=== PATIENT | female | born 1955 | race Caucasian/White ===

== ENCOUNTER 2016-04-29 06:44 | Inpatient (IN) | payer OTHER ==
[~2016-04-29] VITALS: Ht 167.6 cm; Wt 94.1 kg
[2016-04-29] MEDS ORDERED: ASPIRIN 81 MG TAB.CHEW PO ONE (07:15)
[2016-04-29 07:22] LABS: BASO # 0.1 x10^3/uL (0.0-0.2); BASO % 1 % (0-3); EOS % 2 % (0-3); HEMOGLOBIN 14.7 g/dL (12.0-15.5); LYMPH # 3.4 x10^3/uL (1.0-4.8); LYMPH % 37 % (24-48); MEAN CORPUSCULAR HEMOGLOBIN 29 pg (25-35); MEAN CORPUSCULAR HGB CONC 34 g/dL (31-37); MEAN CORPUSCULAR VOLUME 86 fL (79-100); MONO % 11 % (0-9); NEUT % 49 % (31-73); PLATELET COUNT 382 x10^3/uL (140-400); RED BLOOD COUNT 5.14 x10^6/uL (3.50-5.40); RED CELL DISTRIBUTION WIDTH 14.4 % (11.5-14.5); WHITE BLOOD COUNT 9.2 x10^3/uL (4.0-11.0)
[2016-04-29 07:23] LABS: CREATININE 0.8 mg/dL (0.6-1.0); GFR 72.9
[2016-04-29 07:29] LABS: ALBUMIN 3.9 g/dL (3.4-5.0); TOTAL BILIRUBIN 0.3 mg/dL (0.2-1.0)
--- NOTE | 2016-04-29 07:54 | RAD ---
Indication chest pain. A single view of the chest was obtained and is compared to an examination 12/19/2008. The heart and pulmonary vessels appear normal. The lungs are clear. There has not been a significant change when compared to the previous exam. IMPRESSION: No acute finding. No significant change
--- NOTE | 2016-04-29 09:21 | PHYS DOC ---
Past Medical History Past Medical History: No Pertinent History Past Surgical History: Alcohol Use: Rarely Drug Use: None Adult General Chief Complaint Chief Complaint: CHEST WALL PAIN HPI HPI 61-year-old female smoker presents with a 2 day history of chest pain. She states initially the pain started near her left shoulder blade [place] now radiating to her anterior chest. She describes the pain as a tightness. She states the pain is an 8 out of 10 in intensity. The pain has been constant for 2 days. She denies any fever chills sweats. She denies any hemoptysis. She denies any exertional dyspnea. [] Review of Systems Review of Systems Constitutional: Denies fever or chills [] Eyes: Denies change in visual acuity, redness, or eye pain [] HENT: Denies nasal congestion or sore throat [] Respiratory: Denies cough or shortness of breath [] Cardiovascular: No additional information not addressed in HPI [] GI: Denies abdominal pain, nausea, vomiting, bloody stools or diarrhea [] : Denies dysuria or hematuria [] Musculoskeletal: Denies back pain or joint pain [] Integument: Denies rash or skin lesions [] Neurologic: Denies headache, focal weakness or sensory changes [] Endocrine: Denies polyuria or polydipsia [] Current Medications Current Medications Current Medications Medications (Trade) Dose Ordered Sig/Zeb Start Time Stop Time Status Last Admin Dose Admin Aspirin (Children'S Aspirin) 324 mg 1X ONCE 04/29/16 07:15 04/29/16 07:16 DC 04/29/16 07:10 324 MG Allergies Allergies Allergies Coded Allergies Type Severity Reaction Last Updated Verified No Known Drug Allergies 04/29/16 No Physical Exam Physical Exam Constitutional: Well developed, well nourished, no acute distress, non-toxic appearance. [] HENT: Normocephalic, atraumatic, bilateral external ears normal, oropharynx moist, no oral exudates, nose normal. [] Eyes: PERRLA, EOMI, conjunctiva normal, no discharge. [] Neck: Normal range of motion, no tenderness, supple, no stridor. [] Cardiovascular:Heart rate regular rhythm, no murmur [] Lungs & Thorax: Bilateral breath sounds clear to auscultation [] Abdomen: Bowel sounds normal, soft, no tenderness, no masses, no pulsatile masses. [] Skin: Warm, dry, no erythema, no rash. [] Back: No tenderness, no CVA tenderness. [] Extremities: No tenderness, no cyanosis, no clubbing, ROM intact, no edema. [] Neurologic: Alert and oriented X 3, normal motor function, normal sensory function, no focal deficits noted. [] Psychologic: Affect normal, judgement normal, mood normal. [] Current Patient Data Vital Signs Vital Signs Date Time Temp Pulse Resp B/P Pulse Ox O2 Delivery O2 Flow Rate FiO2 04/29/16 07:11 75 20 162/74 97 04/29/16 06:50 98.4 Room Air 98.4 Lab Values Laboratory Tests Test 04/29/16 06:10 White Blood Count 9.2x10^3/uL (4.0-11.0) Red Blood Count 5.14x10^6/uL (3.50-5.40) Hemoglobin 14.7g/dL (12.0-15.5) Hematocrit 44.0% (36.0-47.0) Mean Corpuscular Volume 86fL (79-100) Mean Corpuscular Hemoglobin 29pg (25-35) Mean Corpuscular Hemoglobin Concent 34g/dL (31-37) Red Cell Distribution Width 14.4% (11.5-14.5) Platelet Count 382x10^3/uL (140-400) Neutrophils (%) (Auto) 49% (31-73) Lymphocytes (%) (Auto) 37% (24-48) Monocytes (%) (Auto) 11% (0-9) H Eosinophils (%) (Auto) 2% (0-3) Basophils (%) (Auto) 1% (0-3) Neutrophils # (Auto) 4.5x10^3uL (1.8-7.7) Lymphocytes # (Auto) 3.4x10^3/uL (1.0-4.8) Monocytes # (Auto) 1.0x10^3/uL (0.0-1.1) Eosinophils # (Auto) 0.2x10^3/uL (0.0-0.7) Basophils # (Auto) 0.1x10^3/uL (0.0-0.2) Sodium Level 141mmol/L (136-145) Potassium Level 4.0mmol/L (3.5-5.1) Chloride Level 102mmol/L (98-107) Carbon Dioxide Level 29mmol/L (21-32) Anion Gap 10 (6-14) Blood Urea Nitrogen 13mg/dL (7-20) Creatinine 0.8mg/dL (0.6-1.0) Estimated GFR (Cockcroft-Gault) 72.9 BUN/Creatinine Ratio 16 (6-20) Glucose Level 119mg/dL (70-99) H Calcium Level 10.0mg/dL (8.5-10.1) Total Bilirubin 0.3mg/dL (0.2-1.0) Aspartate Amino Transferase (AST) 21U/L (15-37) Alanine Aminotransferase (ALT) 40U/L (14-59) Alkaline Phosphatase 83U/L (46-116) Troponin I Quantitative < 0.017ng/mL (0.000-0.055) OC-Dwq-M-Type Natriuretic Peptide 47pg/mL (0-124) Total Protein 8.0g/dL (6.4-8.2) Albumin 3.9g/dL (3.4-5.0) Albumin/Globulin Ratio 1.0 (1.0-1.7) Laboratory Tests 04/29/16 06:10 Laboratory Tests 04/29/16 06:10 EKG EKG [EKG: Normal sinus rhythm rate of [address]-T changes] Radiology/Procedures Radiology/Procedures [] Impressions: PROCEDURE: CHEST AP ONLY Indication chest pain. A single view of the chest was obtained and is compared to an examination 12/19/2008. The heart and pulmonary vessels appear normal. The lungs are clear. There has not been a significant change when compared to the previous exam. IMPRESSION: No acute finding. No significant change Course & Med Decision Making Course & Med Decision Making Pertinent Labs and Imaging studies reviewed. (See chart for details) [ED course: Evaluation reveals 61-year-old female with chest discomfort that is concerning for potential coronary origin. Her initial troponin chest x-ray and EKG were unremarkable. I still think it's in the patient's best interest to remain in the hospital or further evaluation and definitive testing. I spoke with Dr. Luisa Frazier who agreed and will accept her for admission. Patient's primary care physician requests a consult by Dr. Toño Cisse.] Dragon Disclaimer Dragon Disclaimer This electronic medical record was generated, in whole or in part, using a voice recognition dictation system. Departure Departure Impression: Primary Impression: Chest pain Disposition: ADMITTED INPATIENT Admitting Physician: Luisa Frazier Condition: STABLE Referrals: LUISA FRAZIER MD (PCP) Problem Qualifiers Primary Impression: Chest pain Chest pain type: unspecified Qualified Code: R07.9 - Chest pain, unspecified FABBY ZUNIGA DO Apr 29, 2016 09:21
[2016-04-29] MEDS ORDERED: ACETAMINOPHEN 325 MG TABLET. PO PRN (09:30)
[2016-04-29] MEDS ORDERED: ONDANSETRON PF 4 MG/2 ML VIAL. IV PRN (09:30)
[2016-04-29 11:00] VITALS: BP 143/92
--- NOTE | 2016-04-29 11:38 | EKG ---
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
[2016-04-29] MEDS: MORPHINE SULFATE 2 MG/ML DISP.SYRIN. IV PRN ×3 (13:25→23:54)
[2016-04-29 15:00] VITALS: BP 138/75
--- NOTE | 2016-04-29 15:40 | PDOC2 ---
CONSULT Date of Consult Date of Consult DATE: 04/29/16 TIME: 15:36 Reason for Consult Reason for Consult: Chest pain Referring Physician Referring Physician: Dr. Frazier Identification/Chief Complaint Chief Complaint Chest pain History of Present Illness Reason for Visit: As patient is a 61-year-old lady that has no prior history of heart disease. She is a smoker. For about 2 days the patient has been experiencing some pain but she states it started on her back and then comes around to the front anteriorly on the left side of the chest it had been constant for almost 2 days. The pain was relieved after pain medication was given. The patient's EKG did not show any acute ST abnormality and the enzymes have been negative. She was not in acute distress at the time that I examined her. Past Medical History Pulmonary: COPD Current Problem List Problem List Problems Medical Problems: (1) Chest pain Status: Acute Current Medications Current Medications Current Medications Aspirin (Children'S Aspirin) 324 mg 1X ONCE PO Last administered on 04/29/16 07:10; Start 04/29/16 at 07:15; Stop 04/29/16 at 07:16; Status DC Ondansetron HCl (Zofran) 4 mg PRN Q8HRS PRN IV NAUSEA/VOMITING; Start 04/29/16 at 09:30; Stop 04/30/16 at 09:29 Morphine Sulfate 2 mg PRN Q2HR PRN IV PAIN Last administered on 04/29/16 13:25 ; Start 04/29/16 at 09:30; Stop 04/30/16 at 09:29 Acetaminophen (Tylenol) 650 mg PRN Q4HRS PRN PO FEVER; Start 04/29/16 at 09:30 ; Stop 04/30/16 at 09:29 Allergies Allergies: Coded Allergies: No Known Drug Allergies (Unverified , 04/29/16) Physical Exam General: Alert, Oriented X3, Cooperative HEENT: Atraumatic, PERRLA Lungs: Clear to auscultation Heart: Regular rate, Normal S1, Normal S2, No murmurs Abdomen: Normal bowel sounds, Soft Extremities: No edema Psych/Mental Status: Mental status NL Vitals VITALS Vital Signs Date Time Temp Pulse Resp B/P Pulse Ox O2 Delivery O2 Flow Rate FiO2 04/29/16 15:00 97.1 68 20 138/75 97 Room Air 97.1 Labs Labs Laboratory Tests Test 04/29/16 06:10 White Blood Count 9.2x10^3/uL (4.0-11.0) Red Blood Count 5.14x10^6/uL (3.50-5.40) Hemoglobin 14.7g/dL (12.0-15.5) Hematocrit 44.0% (36.0-47.0) Mean Corpuscular Volume 86fL (79-100) Mean Corpuscular Hemoglobin 29pg (25-35) Mean Corpuscular Hemoglobin Concent 34g/dL (31-37) Red Cell Distribution Width 14.4% (11.5-14.5) Platelet Count 382x10^3/uL (140-400) Neutrophils (%) (Auto) 49% (31-73) Lymphocytes (%) (Auto) 37% (24-48) Monocytes (%) (Auto) 11% (0-9) Eosinophils (%) (Auto) 2% (0-3) Basophils (%) (Auto) 1% (0-3) Neutrophils # (Auto) 4.5x10^3uL (1.8-7.7) Lymphocytes # (Auto) 3.4x10^3/uL (1.0-4.8) Monocytes # (Auto) 1.0x10^3/uL (0.0-1.1) Eosinophils # (Auto) 0.2x10^3/uL (0.0-0.7) Basophils # (Auto) 0.1x10^3/uL (0.0-0.2) Sodium Level 141mmol/L (136-145) Potassium Level 4.0mmol/L (3.5-5.1) Chloride Level 102mmol/L (98-107) Carbon Dioxide Level 29mmol/L (21-32) Anion Gap 10 (6-14) Blood Urea Nitrogen 13mg/dL (7-20) Creatinine 0.8mg/dL (0.6-1.0) Estimated GFR (Cockcroft-Gault) 72.9 BUN/Creatinine Ratio 16 (6-20) Glucose Level 119mg/dL (70-99) Calcium Level 10.0mg/dL (8.5-10.1) Total Bilirubin 0.3mg/dL (0.2-1.0) Aspartate Amino Transf (AST/SGOT) 21U/L (15-37) Alanine Aminotransferase (ALT/SGPT) 40U/L (14-59) Alkaline Phosphatase 83U/L (46-116) Troponin I Quantitative < 0.017ng/mL (0.000-0.055) MU-Fiw-F-Type Natriuretic Peptide 47pg/mL (0-124) Total Protein 8.0g/dL (6.4-8.2) Albumin 3.9g/dL (3.4-5.0) Albumin/Globulin Ratio 1.0 (1.0-1.7) Laboratory Tests Test 04/29/16 06:10 White Blood Count 9.2x10^3/uL (4.0-11.0) Red Blood Count 5.14x10^6/uL (3.50-5.40) Hemoglobin 14.7g/dL (12.0-15.5) Hematocrit 44.0% (36.0-47.0) Mean Corpuscular Volume 86fL (79-100) Mean Corpuscular Hemoglobin 29pg (25-35) Mean Corpuscular Hemoglobin Concent 34g/dL (31-37) Red Cell Distribution Width 14.4% (11.5-14.5) Platelet Count 382x10^3/uL (140-400) Neutrophils (%) (Auto) 49% (31-73) Lymphocytes (%) (Auto) 37% (24-48) Monocytes (%) (Auto) 11% (0-9) Eosinophils (%) (Auto) 2% (0-3) Basophils (%) (Auto) 1% (0-3) Neutrophils # (Auto) 4.5x10^3uL (1.8-7.7) Lymphocytes # (Auto) 3.4x10^3/uL (1.0-4.8) Monocytes # (Auto) 1.0x10^3/uL (0.0-1.1) Eosinophils # (Auto) 0.2x10^3/uL (0.0-0.7) Basophils # (Auto) 0.1x10^3/uL (0.0-0.2) Sodium Level 141mmol/L (136-145) Potassium Level 4.0mmol/L (3.5-5.1) Chloride Level 102mmol/L (98-107) Carbon Dioxide Level 29mmol/L (21-32) Anion Gap 10 (6-14) Blood Urea Nitrogen 13mg/dL (7-20) Creatinine 0.8mg/dL (0.6-1.0) Estimated GFR (Cockcroft-Gault) 72.9 BUN/Creatinine Ratio 16 (6-20) Glucose Level 119mg/dL (70-99) Calcium Level 10.0mg/dL (8.5-10.1) Total Bilirubin 0.3mg/dL (0.2-1.0) Aspartate Amino Transf (AST/SGOT) 21U/L (15-37) Alanine Aminotransferase (ALT/SGPT) 40U/L (14-59) Alkaline Phosphatase 83U/L (46-116) Troponin I Quantitative < 0.017ng/mL (0.000-0.055) DW-Etz-A-Type Natriuretic Peptide 47pg/mL (0-124) Total Protein 8.0g/dL (6.4-8.2) Albumin 3.9g/dL (3.4-5.0) Albumin/Globulin Ratio 1.0 (1.0-1.7) Assessment/Plan Assessment/Plan This patient comes in with an atypical chest pains and so far she has been ruled out. Since she is a smoker I would like to get a stress MPI in the morning. Thank you very much for asking me to participate in the care of this patient ZARI ORDONEZ MD Apr 29, 2016 15:40
[2016-04-29 19:00] VITALS: BP 116/74
[2016-04-29 22:49] VITALS: BP 125/80
[2016-04-30 03:24] VITALS: BP 136/84
[2016-04-30 07:33] VITALS: BP 141/80
--- NOTE | 2016-04-30 08:23 | PDOC ---
Provider Note Provider Note suspect cervical sourc of pain, mpi [id number] LUISA GOULD MD Apr 30, 2016 08:23
--- NOTE | 2016-04-30 09:16 | HP ---
ADMIT DATE: CHIEF COMPLAINT: Left upper chest pain. HISTORY OF PRESENT ILLNESS: A 61-year-old white female new patient to me, has no medical history and takes no meds. She began having some aching discomfort in her left upper back and left anterior chest. About 2 days prior to admission, which appeared to be more present at rest or lying down and less present when walking or moving about. There was some pain in left arm as well with a sensation of little bit of tingling at times as well. She recalls no injury, but does a lot of heavy lifting at work. She has had no fever, chills, cough, urinary symptoms, GI symptoms or other complaints. EKGs and serial enzymes have been negative so far and she has an MPI scheduled. PAST MEDICAL HISTORY: Surgically, she has had C-sections. She is on no prescription medications. ALLERGIES: No known drug allergies. No other serious medical problems. 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 FAMILY HISTORY: Strongly positive for hypertension in all of her siblings, otherwise unremarkable. REVIEW OF SYSTEMS: No other complaints. OBJECTIVE: ENT: All within normal limits. NECK: No bruits, masses or nodes. Good range of motion. LUNGS: Clear. CARDIOVASCULAR: Regular rate. No irregular beat, rub, or murmur. BACK: Nontender with no ____. No lesions for herpes zoster. No flank tenderness. EXTREMITIES: Unremarkable with good radial and pedal pulses. No joint or skin lesions. ABDOMEN: Benign. NEUROLOGIC: Nonfocal. ASSESSMENT: Suspect musculoskeletal likely cervical radicular source of pain. She is a smoker and does have risk factors for heart disease ____. PLAN: The MPI for now. LUISA GOULD MD DR: JENNY/latosha JOB#: [id number] / [id number]
[2016-04-30] MEDS ORDERED: ACETAMINOPHEN 325 MG TABLET. PO PRN (11:00)
[2016-04-30] MEDS ORDERED: ONDANSETRON PF 4 MG/2 ML VIAL. IV PRN (11:00)
[2016-04-30] MEDS ORDERED: MORPHINE SULFATE 2 MG/ML DISP.SYRIN. IV PRN (11:00)
[2016-04-30 11:02] VITALS: BP 142/95
--- NOTE | 2016-04-30 12:52 | PDOC ---
PROGRESS NOTES Subjective Subjective Has continued to have a few intermittent episodes of chest discomfort that last only briefly and are less sever than when she presented. No other complaints. Stress MPI today. Objective Objective Vital Signs Date Time Temp Pulse Resp B/P Pulse Ox O2 Delivery O2 Flow Rate FiO2 04/30/16 11:08 20 96 Room Air 04/30/16 11:02 97.6 79 142/95 97.6 Intake and Output 04/30/16 07:00 Intake Total 1320 ml Balance 1320 ml Intake Oral 1320 ml # Voids 4 Physical Exam Abdomen: Normal bowel sounds, Soft Heart: Regular rate, Normal S1, Normal S2, No murmurs Extremities: No clubbing, No cyanosis, No edema General: Alert, Cooperative, No acute distress Lungs: Clear to auscultation Neuro: Other (No gross focal deficits) Assessment Assessment Continued chest pain, MPI was essentially normal with EF > 80%. Chest pain is likely non cardiac in origin as ECG, troponins and MPI have been negative. Problems Medical Problems: (1) Chest pain Status: Acute Plan Plan of Care Patient is stable from a cardiac standpoint for discharge. Thank you for including me in the care of this patient. Comment Review of Relevant I have reviewed the following items sarah (where applicable) has been applied. Labs Laboratory Tests Test 04/29/16 06:10 04/29/16 15:10 04/29/16 21:07 White Blood Count 9.2x10^3/uL (4.0-11.0) Red Blood Count 5.14x10^6/uL (3.50-5.40) Hemoglobin 14.7g/dL (12.0-15.5) Hematocrit 44.0% (36.0-47.0) Mean Corpuscular Volume 86fL (79-100) Mean Corpuscular Hemoglobin 29pg (25-35) Mean Corpuscular Hemoglobin Concent 34g/dL (31-37) Red Cell Distribution Width 14.4% (11.5-14.5) Platelet Count 382x10^3/uL (140-400) Neutrophils (%) (Auto) 49% (31-73) Lymphocytes (%) (Auto) 37% (24-48) Monocytes (%) (Auto) 11% (0-9) Eosinophils (%) (Auto) 2% (0-3) Basophils (%) (Auto) 1% (0-3) Neutrophils # (Auto) 4.5x10^3uL (1.8-7.7) Lymphocytes # (Auto) 3.4x10^3/uL (1.0-4.8) Monocytes # (Auto) 1.0x10^3/uL (0.0-1.1) Eosinophils # (Auto) 0.2x10^3/uL (0.0-0.7) Basophils # (Auto) 0.1x10^3/uL (0.0-0.2) Sodium Level 141mmol/L (136-145) Potassium Level 4.0mmol/L (3.5-5.1) Chloride Level 102mmol/L (98-107) Carbon Dioxide Level 29mmol/L (21-32) Anion Gap 10 (6-14) Blood Urea Nitrogen 13mg/dL (7-20) Creatinine 0.8mg/dL (0.6-1.0) Estimated GFR (Cockcroft-Gault) 72.9 BUN/Creatinine Ratio 16 (6-20) Glucose Level 119mg/dL (70-99) Calcium Level 10.0mg/dL (8.5-10.1) Total Bilirubin 0.3mg/dL (0.2-1.0) Aspartate Amino Transf (AST/SGOT) 21U/L (15-37) Alanine Aminotransferase (ALT/SGPT) 40U/L (14-59) Alkaline Phosphatase 83U/L (46-116) Troponin I Quantitative < 0.017ng/mL (0.000-0.055) < 0.017ng/mL (0.000-0.055) < 0.017ng/mL (0.000-0.055) US-Uol-Z-Type Natriuretic Peptide 47pg/mL (0-124) Total Protein 8.0g/dL (6.4-8.2) Albumin 3.9g/dL (3.4-5.0) Albumin/Globulin Ratio 1.0 (1.0-1.7) Laboratory Tests Test 04/29/16 15:10 04/29/16 21:07 Troponin I Quantitative < 0.017ng/mL (0.000-0.055) < 0.017ng/mL (0.000-0.055) Medications Current Medications Aspirin (Children'S Aspirin) 324 mg 1X ONCE PO Last administered on 04/29/16 07:10; Start 04/29/16 at 07:15; Stop 04/29/16 at 07:16; Status DC Ondansetron HCl (Zofran) 4 mg PRN Q8HRS PRN IV NAUSEA/VOMITING; Start 04/29/16 at 09:30; Stop 04/30/16 at 09:29; Status DC Morphine Sulfate 2 mg PRN Q2HR PRN IV PAIN Last administered on 04/29/16 23:54 ; Start 04/29/16 at 09:30; Stop 04/30/16 at 09:29; Status DC Acetaminophen (Tylenol) 650 mg PRN Q4HRS PRN PO FEVER Last administered on 04/30 05:15; Start 04/29/16 at 09:30; Stop 04/30/16 at 09:29; Status DC Morphine Sulfate 2 mg PRN Q2HR PRN IV PAIN Last administered on 04/30/16 11:08 ; Start 04/30/16 at 11:00 Ondansetron HCl (Zofran) 4 mg PRN Q6HRS PRN IV NAUSEA/VOMITING; Start 04/30/16 at 11:00 Acetaminophen (Tylenol) 650 mg PRN Q4HRS PRN PO MILD PAIN / TEMP; Start at 11:00 Vitals/I & O Vital Sign - Last 24 Hours 04/29/16 04/29/16 04/29/16 04/29/16 15:00 19:00 20:00 22:49 Temp 97.1 98.0 97.6 97.1 98.0 97.6 Pulse 68 75 70 Resp 18 B/P 138/75 116/74 125/80 Pulse Ox 97 100 93 O2 Delivery Room Air Room Air Room Air Room Air 04/29/16 04/30/16 04/30/16 04/30/16 23:54 00:24 03:24 07:33 Temp 97.7 97.7 97.7 97.7 Pulse 69 66 Resp 20 20 18 18 B/P 136/84 141/80 Pulse Ox 97 96 O2 Delivery Room Air Room Air Room Air Room Air 04/30/16 04/30/16 04/30/16 08:00 11:02 11:08 Temp 97.6 97.6 Pulse 79 Resp 18 20 B/P 142/95 Pulse Ox 96 96 O2 Delivery Room Air Room Air Room Air Intake and Output 04/29/16 04/29/16 04/30/16 15:00 23:00 07:00 Intake Total 120 ml 800 ml 400 ml Balance 120 ml 800 ml 400 ml ZARI ORDONEZ MD Apr 30, 2016 12:52
--- NOTE | 2016-04-30 14:07 | RAD ---
APPROVED REPORT Test Type: Exercise Stress Nurse/Tech: Consuelo Iqbal R.N. Test Indications: chest pain Cardiac History: smoker Medications: see ehr Medical History: see ehr Resting ECG: sr Resting Heart Rate: 75 bpm Resting Blood Pressure: 153/86mmHg Pretest Chest Pain: No chest pain Nurse/Tech Notes lungs cta-diminished, norrmal heart tones Consent: The procedure was explained to the patient in lay terms. Informed consent was witnessed. Brigido eout was entered into [employer]. History and Stress Test performed by Consuelo Iqbal R.N. Stress Symptoms No chest pain or symptoms. POST EXERCISE Reason for Termination: Reached target heart rate Target HR: Yes Max HR: 154 bpm 96% of Maximum Predicted HR: 159 bpm Exercise duration: 3:00 min:sec, 1 Stage Exercise capacity: 4.6METs Max Blood Pressure: 163/82mmHg Blood Pressure response to exercise: Normal blood pressure response during stress. Heart Rate response to exercise: normal Chest Pain: No. Arrhythmia: Yes. pacs ST Change: No. Imaging Protocol IMAGE PROTOCOL: Rest Tc-99m/stress Tc-99m 1 day Rest: Stress: Viability: Radiopharm.Tc99m [id number] Sestamibi Dose10.5mCi 35mCi Duration 15min. 10min. Img Date 04/30/2016 04/30/2016 Inj-Img [id number]. 60min. Rest Admin Site:IV - Left AntecubitalAdministrator:Bebe Spring, RT (R)(N) Stress Admin Site: IV - Left AntecubitalAdministrator: SANA Koenig, ARRT (R)(N) STRESS DATA End Diast. Vol.67.0mlAv. Heart Rate86.0bpm End Syst. Vol.9.0mlCO Index BSA0.0L/min Myocardial Imvn569.0gEject. Ytwikoft99.0% Stress Rates Pk. Fill Rate4.34EDV/secLVtime Pk. Fill 190.74msec Pk. Empty Rate6.02ESV/secLVtime Pk. Ynvrq187.40msec 03/13 Pk. Fill1.67EDV/sec Stress Scores Regional WT0.00Summed WT0.00 Regional WM0.00Summed WM0.00 LV Perf. Quant 17 Seg. SSS1.00 17 Seg. SRS1.00 17 Seg. SDS1.00 Stress Defect Extent (% LAD)0.00Rest Defect Extent (% LAD)0.00Rev. Defect Extent (% LAD)0.00 Stress Defect Extent (% LCX) 7.50Rest Defect Extent (% LCX)2.50Rev. Defect Extent (% LCX)7.50 Stress Defect Extent (% RCA)0.00Rest Defect Extent (% RCA)0.00Rev. Defect Extent (% RCA)0.00 Stress Defect Extent (% HOWARD)1.30Rest Defect Extent (% HOWARD)0.40Rev. Defect Extent (% HOWARD)1.30 Conclusion 1. Excercised patient on the Alfredo Protocol for a total of 3 mins 2. .This shows low physical tolerance. 3. Attained a heart rate of 154 bpm which is the maximum predicted heart rate for age 4. No significant perfusiobn defects to suggest myocardial ischemia or scar 5. Normal wall motion and wall thickening with an ejection fraction of 80%. 6. Because she excercised only for 3 mins. this tesy may not be valid. 7. Consider pharmacological stressi if clinical suspicion for CAD is high. 8. .
--- NOTE | 2016-04-30 23:30 | DS ---
DATE OF DISCHARGE: 04/30/2016 HOSPITAL SUMMARY: A 61-year-old white female came in with some left-sided upper back and upper chest pain that sounded noncardiac in nature. EKGs and cardiac enzymes and laboratory studies were normal as was chest x-ray and EKG. Dr. Cisse performed exercise MPI, which was all within normal limits and she was comfortable to be followed as an outpatient at this point. FINAL DIAGNOSIS: Noncardiac chest pain. OPERATIONS, PROCEDURES, COMPLICATIONS: None. CONSULTATIONS: Dr. Cisse. DISPOSITION: Discharged home. No new medications. We will evaluate regarding possible cervical source of pain if it persists and will see on a p.r.n. basis. LUISA GOULD MD DR: JENNY/nts JOB#: [id number] / [id number]
== END 2016-04-30 13:45 | disposition home or self-care (01) | DRG 313 ==
LOC: ER 06:44 → 5 SOUTH 09:23
PROVIDERS: ADMIT Family Medicine; ATTEND Family Medicine
DX: R07.89 Other chest pain (principal); F17.210 Nicotine dependence, cigarettes, uncomplicated; J44.9 Chronic obstructive pulmonary disease, unspecified; Z82.49 Family history of ischemic heart disease and other diseases of the circulatory system; Z79.82 Long term (current) use of aspirin; Z79.899 Other long term (current) drug therapy
CPT/HCPCS: 36415; 71010; 78452; 80053; 83880; 84484; 85027; 93005; 93017; 96374; 96376; A9500; J2270; 99285-25

== ENCOUNTER → 2017-04-22 | Outpatient (CLI) | payer OTHER ==
[2017-04-22 07:43] LABS: ANION GAP 9 (6-14); BLOOD UREA NITROGEN 15 mg/dL (7-20); CALCIUM 9.1 mg/dL (8.5-10.1); CARBON DIOXIDE 28 mmol/L (21-32); CHLORIDE 100 mmol/L (98-107); CHOLESTEROL 178 mg/dL (0-200); CREATININE 0.8 mg/dL (0.6-1.0); GFR 72.7; GLUCOSE 117 mg/dL (70-99); HDLC 32 mg/dL (40-60); LDLC 124 mg/dL (0-100); NON-HDL CHOLESTEROL 146 mg/dL (0-129); SODIUM 137 mmol/L (136-145); TRIGLYCERIDES 111 mg/dL (0-150); VLDLC 22 mg/dL (0-40)
[2017-04-22 07:44] LABS: CHOLESTEROL/HDL RATIO 5.6
== END | disposition home or self-care (01) ==
LOC: LAB 07:08
DX: Z13.1 Encounter for screening for diabetes mellitus (principal); Z13.220 Encounter for screening for lipoid disorders; E78.5 Hyperlipidemia, unspecified
CPT/HCPCS: 36415; 80048; 80061

== ENCOUNTER → 2017-04-24 | Outpatient (CLI) | payer OTHER | END | disposition home or self-care (01) | LOC: MAMMO 12:14 | DX: Z12.31 Encounter for screening mammogram for malignant neoplasm of breast (principal) | CPT/HCPCS: 77063; 77067 ==

== ENCOUNTER → 2017-05-01 | Outpatient (CLI) | payer OTHER | END | disposition home or self-care (01) | LOC: MAMMO 10:36 | DX: R92.1 Mammographic calcification found on diagnostic imaging of breast (principal) | CPT/HCPCS: 77065 ==

== ENCOUNTER → 2017-11-19 | Outpatient (CLI) | payer OTHER ==
--- NOTE | 2017-11-19 13:15 | RAD ---
DATE: 11/19/2017 EXAM: MAMMO RYAN DIAG RT HISTORY: Follow-up microcalcifications COMPARISON: 05/01/2017, 04/24/2017 This study was interpreted with the benefit of Computerized Aided Detection (CAD). Breast Density: SCATTERED The breast parenchyma shows scattered fibroglandular densities. Breast parenchyma level B. FINDINGS: 2-D and 3-D tomosynthesis imaging was performed in CC and MLO projections. No new or enlarging breast densities are seen. There is a grouping of microcalcifications posteromedially in the right breast which is unchanged. These have a relatively benign appearance. No new abnormality is detected. IMPRESSION: Stable right breast microcalcifications. Follow-up bilateral mammography in 6 months is suggested. BI-RADS CATEGORY: 3 PROBABLY BENIGN FINDING(S)-SHORT INTERVAL FOLLOW-UP SUGGESTED RECOMMENDED FOLLOW-UP: 6M 6 MONTH FOLLOW-UP PQRS compliance statement: Patient information was entered into a reminder system with a target due date for the next mammogram. Mammography is a sensitive method for finding small breast cancers, but it does not detect them all and is not a substitute for careful clinical examination. A negative mammogram does not negate a clinically suspicious finding and should not result in delay in biopsying a clinically suspicious abnormality. "Our facility is accredited by the [employer] Mammography Program."
== END | disposition home or self-care (01) ==
LOC: MAMMO 12:22
PROVIDERS: ATTEND Family Medicine
DX: R92.0 Mammographic microcalcification found on diagnostic imaging of breast (principal); E78.5 Hyperlipidemia, unspecified; F17.210 Nicotine dependence, cigarettes, uncomplicated; J44.9 Chronic obstructive pulmonary disease, unspecified; Z82.49 Family history of ischemic heart disease and other diseases of the circulatory system; Z79.82 Long term (current) use of aspirin; Z79.899 Other long term (current) drug therapy
CPT/HCPCS: 77065; G0279; 77061

== ENCOUNTER → 2018-05-26 | Outpatient (CLI) | payer OTHER ==
[2018-05-26 08:14] LABS: ALBUMIN 3.4 g/dL (3.4-5.0); ALBUMIN/GLOBULIN RATIO 0.8 (1.0-1.7); CALCIUM 9.2 mg/dL (8.5-10.1); CREATININE 0.8 mg/dL (0.6-1.0); GFR 72.4; POTASSIUM 4.4 mmol/L (3.5-5.1); TOTAL BILIRUBIN 0.4 mg/dL (0.2-1.0); TOTAL PROTEIN 7.9 g/dL (6.4-8.2)
[2018-05-26 08:21] LABS: CHOLESTEROL/HDL RATIO 3.4
[2018-05-26 23:12] LABS: HEMOGLOBIN A1C 6.2 % (4.8-5.6)
== END | disposition home or self-care (01) ==
LOC: LAB 07:15
PROVIDERS: ATTEND Family Medicine
DX: E78.2 Mixed hyperlipidemia (principal); R73.03 Prediabetes
CPT/HCPCS: 36415; 80053; 80061; 83036

== ENCOUNTER → 2018-06-10 | Outpatient (CLI) | payer OTHER ==
--- NOTE | 2018-06-10 15:14 | RAD ---
DATE: 06/10/2018 EXAM: MAMMO RYAN DIAG BILAT HISTORY: Follow-up microcalcifications COMPARISON: 11/19/2017, 05/01/2017, 04/24/2017 This study was interpreted with the benefit of Computerized Aided Detection (CAD). Breast Density: SCATTERED The breast parenchyma shows scattered fibroglandular densities. Breast parenchyma level B. FINDINGS: 2-D and 3-D tomosynthesis imaging was performed in CC and MLO projections. No new or enlarging breast densities are seen. A grouping of calcifications in the posteromedial aspect of the right breast is unchanged. There are scattered benign type calcifications are noted in both breasts. IMPRESSION: Stable right breast microcalcifications. Further mammographic surveillance consisting of right mammograms in 6 months and bilateral mammography at one year is suggested. BI-RADS CATEGORY: 3 PROBABLY BENIGN FINDING(S)-SHORT INTERVAL FOLLOW-UP SUGGESTED RECOMMENDED FOLLOW-UP: 6M 6 MONTH FOLLOW-UP PQRS compliance statement: Patient information was entered into a reminder system with a target due date for the next mammogram. Mammography is a sensitive method for finding small breast cancers, but it does not detect them all and is not a substitute for careful clinical examination. A negative mammogram does not negate a clinically suspicious finding and should not result in delay in biopsying a clinically suspicious abnormality. "Our facility is accredited by the [employer] Mammography Program."
== END | disposition home or self-care (01) ==
LOC: MAMMO 13:30
PROVIDERS: ATTEND Family Medicine
DX: R92.0 Mammographic microcalcification found on diagnostic imaging of breast (principal)
CPT/HCPCS: 77066; G0279; 77062

== ENCOUNTER → 2018-08-29 | Day surgery (SDC) | payer OTHER ==
[~2018-08-29] MED LIST: ATOR40TA59 PO; HYDROmorphone 2 MG/ML VIAL IV PRN; IV RINGERS,LACTATED 1000ML 1,000 ML IV SCH; LIDOCAINE 2% PF 5 ML VIAL. ONE; MORPHINE SULFATE 2 MG/ML VIAL. IV PRN; ONDANSETRON PF 4 MG/2 ML VIAL. IV PRN; PROCHLORPERAZINE 10 MG/2 ML VIAL. IV PRN; PROPOFOL 40 ML IV ONE; VARE1TAB21 PO; fentaNYL PF VIAL 100 MCG/2 ML VIAL IV PRN
[2018-08-29 08:35] VITALS: BP 138/62
--- NOTE | 2018-08-29 09:08 | CONS ---
DATE OF CONSULTATION: 08/29/2018 REFERRING PHYSICIAN: Oanh Pinedo MD. REASON FOR CONSULTATION: Colorectal screening. HISTORY OF PRESENT ILLNESS: A 63-year-old female with past medical history significant for hyperlipidemia, status post C-sections x2, is seen for screening colon exam. Bowel habits are regular without diarrhea or constipation. There has been no melena and/or hematochezia. Weight and appetite are stable. No family history of colon polyps or colon cancer. She states that has not undergone previous screening. She is otherwise without additional complaints. PAST MEDICAL HISTORY: GERD, arthritis, and hyperlipidemia. ALLERGIES: None. MEDICATIONS: Include atorvastatin and Chantix. FAMILY HISTORY: Significant for diabetes and ovarian cancer with her mother and organic heart disease with her grandmother and colon polyps with her grandfather. REVIEW OF SYSTEMS: HEENT: There is no decrease in visual acuity issues. CARDIAC: No history of hypertension, palpitations, syncope. PULMONARY: No history of tobaccoism. NEUROLOGIC: No stroke or migraine. PSYCHIATRIC: No mood swings, depression, insomnia. HEMATOLOGIC: No bleeding, bruising, or coagulopathy. GASTROINTESTINAL: See history of present illness. MUSCULOSKELETAL: History of osteoarthrosis. ENDOCRINE: There is no history of diabetes. There is history of hyperlipidemia. RENAL: No dysuria, frequency, hematuria. DERMATOLOGIC: No skin rashes or pruritus. PHYSICAL EXAMINATION: GENERAL: A well-nourished, well-developed female who is alert and cooperative, in no acute distress. VITAL SIGNS: Temperature 98, pulse 93, and respirations 18. HEENT: Normocephalic, atraumatic. Pupils and extraocular muscles are not tested. Sclerae anicteric. NECK: Supple. LUNGS: Clear. CARDIOVASCULAR: Reveals an S1, S2 without S3, S4 or appreciable murmur. ABDOMEN: Reveals soft abdomen, normal bowel sounds without appreciable hepatosplenomegaly with incision. EXTREMITIES: Reveals no cyanosis, clubbing, edema. IMPRESSION: Colorectal screening is warranted at this time. Risks and benefits of procedure including risk of hemorrhage and perforation requiring operation have been discussed. The patient is willing to proceed. I would like to thank Dr. Pinedo, for allowing me to consult and participate in this patient's care. MAK RAM MD DR: YARA/latosha JOB#: [id number] / [id number] OANH Esteban MD
--- NOTE | 2018-09-01 15:06 | PATHOLOGY ---
[facility] Accession Number: [id number] . 01 Material submitted: . rectum - RECTAL COLON POLYP BIOPSIES . 01 Clinical history: . Screening colon. . 02 Diagnosis: Colorectal biopsies, rectal polyps: - Hyperplastic polyps. (JPM:mireya; 09/01/2018) QMS/09/01/2018 . 02 Comment: There are no adenomatous changes or evidence of malignancy. (JPM:mireya; 09/01/2018) . 02 Electronically signed: . Dean Bourgeois MD, Pathologist NPI- [id number] . 01 Gross description: . Received in formalin labeled "Maira, Phyllis, rectal colon polyp biopsies" is a 0.6 x 0.3 x 0.2 cm aggregate of brooks-brown mucosa fragments. The specimen is submitted in A1. ([facility]; 08/31/2018) SYC/SYC . 02 Pathologist provided ICD-10: K62.1, Z12.11 . 02 CPT . 774403 Specimen Comment: A courtesy copy of this report has been sent to Specimen Comment: [phone], . Specimen Comment: Report sent to / DR MATT Performed at: 01 [facility] [address], [place], [place] [id number] MD Franco Raman MD Phone: [phone] Performed at: 02 [facility] [address], [place] [id number] MD Dean Bourgeois MD Phone: [phone]
== END ==
LOC: ENDOS 06:58
PROVIDERS: ATTEND Internal Medicine Gastroenterology
DX: Z12.11 Encounter for screening for malignant neoplasm of colon (principal); K62.1 Rectal polyp; K64.0 First degree hemorrhoids; K21.9 Gastro-esophageal reflux disease without esophagitis; I10 Essential (primary) hypertension; E78.5 Hyperlipidemia, unspecified; M19.90 Unspecified osteoarthritis, unspecified site; Z79.899 Other long term (current) drug therapy; Z87.891 Personal history of nicotine dependence; Z98.890 Other specified postprocedural states
CPT/HCPCS: 45380; 88305; J2001; J2704

== ENCOUNTER → 2018-12-18 | Outpatient (CLI) | payer OTHER ==
[2018-12-01 11:00] VITALS: BP 141/74
[~2018-12-18] MED LIST changes: -HYDROmorphone 2 MG/ML VIAL IV PRN; -IV RINGERS,LACTATED 1000ML 1,000 ML IV SCH; -LIDOCAINE 2% PF 5 ML VIAL. ONE; -MORPHINE SULFATE 2 MG/ML VIAL. IV PRN; -ONDANSETRON PF 4 MG/2 ML VIAL. IV PRN; -PROCHLORPERAZINE 10 MG/2 ML VIAL. IV PRN; -PROPOFOL 40 ML IV ONE; -fentaNYL PF VIAL 100 MCG/2 ML VIAL IV PRN
--- NOTE | 2018-12-18 13:51 | RAD ---
DATE: 12/18/2018 8:51 AM EXAM: MAMMO RYAN DIAG RT HISTORY: further evaluation of a finding noted on her most recent screening mammographic examination. On that examination indeterminate microcalcifications were reported within the right COMPARISON: 06/10/2018 Right CC and MLO views of the breasts were performed. Right breast tomosynthesis was performed in CC and MLO projections. This study was interpreted with the benefit of Computerized Aided Detection (CAD). FINDINGS: Breast Density: SCATTERED The breast parenchyma shows scattered fibroglandular densities. Breast parenchyma level B Benign calcifications are present. The parenchymal pattern appears stable. The right breast microcalcifications are stable in appearance. No suspicious masses, microcalcifications or architectural distortion is present to suggest malignancy in the left breast. The visualized axillae are unremarkable. IMPRESSION: Stable appearance of the right breast macrocalcifications. BI-RADS CATEGORY: 3 PROBABLY BENIGN FINDING(S)-SHORT INTERVAL FOLLOW-UP SUGGESTED RECOMMENDED FOLLOW-UP: 6M 6 MONTH FOLLOW-UP 6 month follow-up of the right breast microcalcifications, at which point the patient will be due for contralateral screening. PQRS compliance statement: Patient information was entered into a reminder system with a target due date for the next mammogram. Mammography is a sensitive method for finding small breast cancers, but it does not detect them all and is not a substitute for careful clinical examination. A negative mammogram does not negate a clinically suspicious finding and should not result in delay in biopsying a clinically suspicious abnormality. "Our facility is accredited by the [employer] Mammography Program."
== END | disposition home or self-care (01) ==
LOC: MAMMO 08:50
PROVIDERS: ATTEND Family Medicine
DX: R92.0 Mammographic microcalcification found on diagnostic imaging of breast (principal)
CPT/HCPCS: 77065; G0279; 77061

== ENCOUNTER → 2019-05-15 | Outpatient (CLI) | payer OTHER ==
[2018-12-01 11:00] VITALS: BP 141/74
== END ==
LOC: LAB 13:46
PROVIDERS: ATTEND Family Medicine
DX: I77.6 Arteritis, unspecified (principal)
CPT/HCPCS: 88305; 88312

== ENCOUNTER → 2019-09-30 | Outpatient (CLI) | payer OTHER ==
[2018-12-01 11:00] VITALS: BP 141/74
== END | disposition home or self-care (01) ==
LOC: LAB 13:46
PROVIDERS: ATTEND Internal Medicine Pulmonary Disease
DX: Z20.828 Contact with and (suspected) exposure to other viral communicable diseases (principal)
CPT/HCPCS: U0003-CS

== ENCOUNTER → 2019-10-08 | Outpatient (CLI) | payer OTHER ==
[2018-12-01 11:00] VITALS: BP 141/74
--- NOTE | 2019-10-08 15:57 | RAD ---
DATE: 10/08/2019 2:48 PM EXAM: MAMMO RYAN TRISTIAN LOAIZA HISTORY: Patient is due for bilateral screening mammogram Presents for six-month follow-up probably benign right breast lower inner calcifications. COMPARISON: 04/24/2017, 05/01/2017, 11/19/2017, 06/10/2018, 12/18/2018 mammograms (most recent exam was of the right breast only). Bilateral CC and MLO views of the breasts were performed. Bilateral breast tomosynthesis was performed in CC and MLO projections. Magnification right cc view also obtained. This study was interpreted with the benefit of Computerized Aided Detection (CAD). FINDINGS: Breast Density: FATTY The Breast Parenchyma is primarily fatty replaced. Breast parenchyma level density A. Loose cluster of punctate calcifications in the medial inferior right breast at the approximate 4:00 position 12 cm from the nipple shows no significant change in over 2 years and is compatible with a benign etiology. No developing mass, architectural distortion or developing calcifications appreciated. Left mammogram is negative. IMPRESSION: Benign right breast calcifications. No evidence of malignancy in either breast. BI-RADS CATEGORY: 2 BENIGN FINDING(S) RECOMMENDED FOLLOW-UP: 12M 12 MONTH FOLLOW-UP Annual screening mammography is recommended, unless clinically indicated sooner based on symptoms or change in physical exam. Discussed with patient. PQRS compliance statement: Patient information was entered into a reminder system with a target due date for the next mammogram. Mammography is a sensitive method for finding small breast cancers, but it does not detect them all and is not a substitute for careful clinical examination. A negative mammogram does not negate a clinically suspicious finding and should not result in delay in biopsying a clinically suspicious abnormality. "Our facility is accredited by the [employer] Mammography Program."
== END | disposition home or self-care (01) ==
LOC: MAMMO 14:16
PROVIDERS: ATTEND Family Medicine
DX: R92.1 Mammographic calcification found on diagnostic imaging of breast (principal)
CPT/HCPCS: 77066; G0279; 77062

== ENCOUNTER → 2020-02-09 | Outpatient (CLI) | payer OTHER ==
[2018-12-01 11:00] VITALS: BP 141/74
== END ==
LOC: LAB 15:49
PROVIDERS: ATTEND Internal Medicine Pulmonary Disease
DX: U07.1 COVID-19 (principal)
CPT/HCPCS: U0003

== ENCOUNTER 2020-03-18 09:15 | Inpatient (IN) | payer OTHER ==
[~2020-03-18] VITALS: Ht 167.6 cm; Wt 98.8 kg
--- NOTE | 2020-03-18 10:28 | PHYS DOC ---
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 She injured her left elbow and left knee. She has a sharp shooting pain in those areas that is nonradiating without alleviating factors. She denies head injury chest pain shortness of breath or abdominal pain. She denies any other injuries. The pain is moderate to severe intermittent and worse with movement of the elbow. Review of systems negative for head injury loss of consciousness neck pain chest pain shortness of breath abdominal pain or back pain. All other review of systems negative. ED course: 64-year-old female with elbow and shoulder pain on the left and left knee pain after a fall up in the operating room. X-rays obtained. X-ray shows olecranon FRACTURE. I spoke with Dr. John who will surgically fix the patient's fracture. We placed the patient in a posterior long splint and a sling. Will admit the patient to the hospitalist for surgical repair of the olecranon fracture. Heart Score: Risk Factors: Risk Factors: DM, Current or recent (<one month) smoker, HTN, HLP, family history of CAD, obesity. Risk Scores: Score 0 - 3: 2.5% MACE over next 6 weeks - Discharge Home Score 4 - 6: 20.3% MACE over next 6 weeks - Admit for Clinical Observation Score 7 - 10: 72.7% MACE over next 6 weeks - Early Invasive Strategies Current Medications: Current Medications Medications (Trade) Dose Ordered Sig/Zeb Start Time Stop Time Status Last Admin Dose Admin Lorazepam (Ativan) 1 mg STK-MED ONCE 03/18/20 09:27 03/18/20 09:27 DC Allergies: Allergies: Allergies Coded Allergies Type Severity Reaction Last Updated Verified No Known Drug Allergies 08/29/18 No Physical Exam: PE: General Appearance alert, cooperative, no distress, responsive Head Normocephalic, without obvious abnormality, atraumatic Eyes conjunctivae/corneas clear. PERRL, EOM's intact. Nose Nares normal. Septum midline. Mucosa normal. No drainage or sinus tenderness. Throat no blood or lacerations, normal alignment Neck supple, symmetrical, trachea midline Back/Spine symmetric, normal curvature. ROM normal, no abrasions, no tenderne ss to palpation, no step-offs Lungs clear to auscultation bilaterally Chest Wall normal ribcage without tenderness to palpation, crepitus or emphysema Heart reg rate and regular rhythm, S1, S2 normal, no murmur, click, rub or gallop Abdomen soft, non-tender. Bowel sounds normal. No masses, no organomegaly. No rebound tenderness or guarding. Pelvic stable Extremities The patient's left upper extremity has a nontender clavicle. Some pain with passive range of motion of the left shoulder. No deformity of the shoulder. No abrasions lacerations or ecchymosis of the left upper extremity. She has tenderness to palpation of the lateral portion of the elbow with pain with passive range of motion. Nontender wrist with normal range of motion. Palpable pulse with 2 sec cap refill. Normal motor and sensory function of the hand. The left lower extremity has tenderness over the patella. Nontender in the knee otherwise. Normal range of motion of the knee without any pain with passive range of motion of the knee. The hip and ankle are nontender with normal range of motion. Palpable pulse with 2-second cap refill distally. The remainder the extremities are nontender with normal range of motion of the joints and neurovascularly intact. Pulses 2+ and symmetric Skin Skin color, texture, turgor normal. No rashes or lesions Neurologic Grossly normal Eye opening: (4) spontaneous Best motor response: (6) obeys verbal command Best verbal response: (5) oriented and converses Total Leyla (E + M + V) = 15 Current Patient Data: Vital Signs: Vital Signs Date Time Temp Pulse Resp B/P (MAP) Pulse Ox O2 Delivery O2 Flow Rate FiO2 03/18/20 09:17 98.8 99/56 (70) 98.8 EKG: EKG: [] Radiology/Procedures: Radiology/Procedures: [] Course & Med Decision Making: Course & Med Decision Making Pertinent Labs and Imaging studies reviewed. (See chart for details) [] Dragon Disclaimer: Bridget Disclaimer: This electronic medical record was generated, in whole or in part, using a voice recognition dictation system. Departure Departure Impression: Primary Impression: Elbow fracture, left Disposition: ADMITTED INPT THIS HOSP Admitting Physician: ELTON Condition: STABLE Referrals: OANH MATT MD (PCP) ROBERTO AUGUSTE MD Mar 18, 2020 10:28
[2020-03-18] MEDS ORDERED: HYDROmorphone 2 MG/ML VIAL IM ONE (10:30)
--- NOTE | 2020-03-18 11:16 | RAD ---
EXAM: Left knee, 4 views; left shoulder, 3 views; left elbow, 3 views. HISTORY: Fall. Pain. COMPARISON: None. FINDINGS: Left knee: 4 views of the left knee are obtained. There is medial compartment joint space narrowing a nd spurring. There is enthesopathy along the superior patella. There is no joint effusion. There is n o fracture, dislocation or subluxation. Left shoulder: 3 views of the left shoulder obtained. There is no acute fracture, dislocation or subl uxation. There is mild glenohumeral spurring. Left elbow: 3 views of the left elbow are obtained. The exam is limited due to oblique projections. T here is a displaced olecranon fracture with overlying soft tissue swelling. No distal humeral fractur e is seen. The radial head is obscured due to overlying osseous structures. There is a suspected elbo w effusion. IMPRESSION: 1. Left olecranon fracture with overlying soft tissue swelling. Evaluation for a proximal radial frac ture is limited due to patient positioning. There is no true lateral view. Repeat examination can be attempted when clinically feasible. 2. Mild medial compartment os arthritis of the left knee and mild left glenohumeral osteoarthritis. Electronically signed by: Bebe See MD (03/18/2020 11:09 AM) [id number]
[2020-03-18 12:23] LABS: BASO # 0.1 x10^3/uL (0.0-0.2); BASO % 1 % (0-3); EOS # 0.1 x10^3/uL (0.0-0.7); EOS % 1 % (0-3); HEMATOCRIT 39.4 % (36.0-47.0); HEMOGLOBIN 12.9 g/dL (12.0-15.5); LYMPH # 2.6 x10^3/uL (1.0-4.8); LYMPH % 20 % (24-48); MEAN CORPUSCULAR HEMOGLOBIN 28 pg (25-35); MEAN CORPUSCULAR HGB CONC 33 g/dL (31-37); MEAN CORPUSCULAR VOLUME 86 fL (79-100); MONO # 1.2 x10^3/uL (0.0-1.1); MONO % 9 % (0-9); NEUT # 9.2 x10^3/uL (1.8-7.7); NEUT % 70 % (31-73); PLATELET COUNT 381 x10^3/uL (140-400); RED BLOOD COUNT 4.61 x10^6/uL (3.50-5.40); RED CELL DISTRIBUTION WIDTH 13.8 % (11.5-14.5); WHITE BLOOD COUNT 13.2 x10^3/uL (4.0-11.0)
[2020-03-18] MEDS ORDERED: IV NORMAL SALINE 1000ML BAG 1,000 ML IV SCH (12:30)
[2020-03-18 12:35] LABS: CREATININE 0.6 mg/dL (0.6-1.0); GFR 100.6; POTASSIUM 4.1 mmol/L (3.5-5.1)
[2020-03-18 12:42] LABS: ALBUMIN 3.6 g/dL (3.4-5.0); ALBUMIN/GLOBULIN RATIO 0.8 (1.0-1.7); TOTAL BILIRUBIN 0.4 mg/dL (0.2-1.0); TOTAL PROTEIN 8.3 g/dL (6.4-8.2)
[2020-03-18] MEDS ORDERED: HYDROmorphone 2 MG/ML VIAL IV PRN (12:45)
--- NOTE | 2020-03-18 14:34 | PDOC2 ---
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 She injured her left elbow and left knee. She has a sharp shooting pain in those areas that is nonradiating without alleviating factors. She denies head injury chest pain shortness of breath or abdominal pain. She denies any other injuries. The pain is moderate to severe intermittent and worse with movement of the elbow. The skin is reported is intact over the elbow fracture. Knee x-rays and shoulder x-rays showed no fracture. There is an olecranon fracture which is displaced. I was consulted. Past Medical History Cardiovascular: Hyperlipidemia Pulmonary: COPD Past Surgical History Past Surgical History: Family History Family History: Heart Disease Social History Social History quit smoking about 1.5 years ago. occasional EtOH Quit ALCOHOL: rare Lives: with Family Current Medications Current Medications Current Medications Lorazepam (Ativan) 1 mg STK-MED ONCE .ROUTE ; Start 03/18/20 at 09:27; Stop 03/18/20 at 09:27; Status DC Hydromorphone HCl (Dilaudid) 0.5 mg 1X ONCE IM Last administered on 03/18/20at 11:12; Start 03/18/20 at 10:30; Stop 03/18/20 at 10:31; Status DC Sodium Chloride 1,000 ml @ 100 mls/hr Q10H IV ; Start 03/18/20 at 12:30; Stop 03/18/20 at 16:29 Hydromorphone HCl (Dilaudid) 0.5 mg PRN Q30MIN PRN IV SEVERE PAIN 7-10 Last administered on 03/18/20at 12:54; Start 03/18/20 at 12:45 Active Scripts Active Reported Atorvastatin Calcium 40 Mg Tablet 1 Tab PO DAILY Allergies Allergies: Coded Allergies: No Known Drug Allergies (Unverified , 08/29/18) Physical Exam General: Alert, Cooperative HEENT: Atraumatic Lungs: Normal air movement Heart: Regular rate Abdomen: Soft Extremities: Other (The left elbow was in a splint. Neurovascular function is intact at the hand. The skin is reported is intact.) Skin: No breakdown, No significant lesion Neuro: Normal speech, Sensation intact Psych/Mental Status: Mental status NL, Mood NL Vitals VITALS Vital Signs Date Time Temp Pulse Resp B/P (MAP) Pulse Ox O2 Delivery O2 Flow Rate FiO2 03/18/20 14:19 Room Air 03/18/20 12:54 16 03/18/20 11:12 99 03/18/20 09:17 98.8 99/56 (70) 98.8 Labs Labs Laboratory Tests Test 03/18/20 12:10 03/18/20 12:15 SARS-CoV-2 Antigen (Rapid) Negative (NEGATIVE) White Blood Count 13.2 x10^3/uL (4.0-11.0) Red Blood Count 4.61 x10^6/uL (3.50-5.40) Hemoglobin 12.9 g/dL (12.0-15.5) Hematocrit 39.4 % (36.0-47.0) Mean Corpuscular Volume 86 fL (79-100) Mean Corpuscular Hemoglobin 28 pg (25-35) Mean Corpuscular Hemoglobin Concent 33 g/dL (31-37) Red Cell Distribution Width 13.8 % (11.5-14.5) Platelet Count 381 x10^3/uL (140-400) Neutrophils (%) (Auto) 70 % (31-73) Lymphocytes (%) (Auto) 20 % (24-48) Monocytes (%) (Auto) 9 % (0-9) Eosinophils (%) (Auto) 1 % (0-3) Basophils (%) (Auto) 1 % (0-3) Neutrophils # (Auto) 9.2 x10^3/uL (1.8-7.7) Lymphocytes # (Auto) 2.6 x10^3/uL (1.0-4.8) Monocytes # (Auto) 1.2 x10^3/uL (0.0-1.1) Eosinophils # (Auto) 0.1 x10^3/uL (0.0-0.7) Basophils # (Auto) 0.1 x10^3/uL (0.0-0.2) Sodium Level 136 mmol/L (136-145) Potassium Level 4.1 mmol/L (3.5-5.1) Chloride Level 102 mmol/L (98-107) Carbon Dioxide Level 24 mmol/L (21-32) Anion Gap 10 (6-14) Blood Urea Nitrogen 18 mg/dL (7-20) Creatinine 0.6 mg/dL (0.6-1.0) Estimated GFR (Cockcroft-Gault) 100.6 BUN/Creatinine Ratio 30 (6-20) Glucose Level 140 mg/dL (70-99) Calcium Level 9.0 mg/dL (8.5-10.1) Total Bilirubin 0.4 mg/dL (0.2-1.0) Aspartate Amino Transf (AST/SGOT) 58 U/L (15-37) Alanine Aminotransferase (ALT/SGPT) 106 U/L (14-59) Alkaline Phosphatase 90 U/L (46-116) Total Protein 8.3 g/dL (6.4-8.2) Albumin 3.6 g/dL (3.4-5.0) Albumin/Globulin Ratio 0.8 (1.0-1.7) Laboratory Tests Test 03/18/20 12:10 03/18/20 12:15 SARS-CoV-2 Antigen (Rapid) Negative (NEGATIVE) White Blood Count 13.2 x10^3/uL (4.0-11.0) Red Blood Count 4.61 x10^6/uL (3.50-5.40) Hemoglobin 12.9 g/dL (12.0-15.5) Hematocrit 39.4 % (36.0-47.0) Mean Corpuscular Volume 86 fL (79-100) Mean Corpuscular Hemoglobin 28 pg (25-35) Mean Corpuscular Hemoglobin Concent 33 g/dL (31-37) Red Cell Distribution Width 13.8 % (11.5-14.5) Platelet Count 381 x10^3/uL (140-400) Neutrophils (%) (Auto) 70 % (31-73) Lymphocytes (%) (Auto) 20 % (24-48) Monocytes (%) (Auto) 9 % (0-9) Eosinophils (%) (Auto) 1 % (0-3) Basophils (%) (Auto) 1 % (0-3) Neutrophils # (Auto) 9.2 x10^3/uL (1.8-7.7) Lymphocytes # (Auto) 2.6 x10^3/uL (1.0-4.8) Monocytes # (Auto) 1.2 x10^3/uL (0.0-1.1) Eosinophils # (Auto) 0.1 x10^3/uL (0.0-0.7) Basophils # (Auto) 0.1 x10^3/uL (0.0-0.2) Sodium Level 136 mmol/L (136-145) Potassium Level 4.1 mmol/L (3.5-5.1) Chloride Level 102 mmol/L (98-107) Carbon Dioxide Level 24 mmol/L (21-32) Anion Gap 10 (6-14) Blood Urea Nitrogen 18 mg/dL (7-20) Creatinine 0.6 mg/dL (0.6-1.0) Estimated GFR (Cockcroft-Gault) 100.6 BUN/Creatinine Ratio 30 (6-20) Glucose Level 140 mg/dL (70-99) Calcium Level 9.0 mg/dL (8.5-10.1) Total Bilirubin 0.4 mg/dL (0.2-1.0) Aspartate Amino Transf (AST/SGOT) 58 U/L (15-37) Alanine Aminotransferase (ALT/SGPT) 106 U/L (14-59) Alkaline Phosphatase 90 U/L (46-116) Total Protein 8.3 g/dL (6.4-8.2) Albumin 3.6 g/dL (3.4-5.0) Albumin/Globulin Ratio 0.8 (1.0-1.7) Images Images Reports reviewed and images independently reviewed left shoulder, left elbow and left knee. No acute fracture of the shoulder or the knee. Minimal degenerative changes in those. The left elbow shows a displaced olecranon fracture. [facility] [address] [place], [place] [id number] IMAGING REPORT Signed PATIENT: THERESA CHATMAN ACCOUNT: [id number] : 1955 LOCATION: ER AGE: 64 SEX: F EXAM STATUS: REG ER ORD. PHYSICIAN: ROBERTO AUGUSTE MD REASON: left elbow pain PROCEDURE: SHOULDER 2+V LEFT EXAM: Left knee, 4 views; left shoulder, 3 views; left elbow, 3 views. HISTORY: Fall. Pain. COMPARISON: None. FINDINGS: Left knee: 4 views of the left knee are obtained. There is medial compartment joint space narrowing and spurring. There is enthesopathy along the superior patella. There is no joint effusion. There is no fracture, dislocation or subluxation. Left shoulder: 3 views of the left shoulder obtained. There is no acute fracture, dislocation or subluxation. There is mild glenohumeral spurring. Left elbow: 3 views of the left elbow are obtained. The exam is limited due to oblique projections. There is a displaced olecranon fracture with overlying soft tissue swelling. No distal humeral fracture is seen. The radial head is obscured due to overlying osseous structures. There is a suspected elbow effusion. IMPRESSION: 1. Left olecranon fracture with overlying soft tissue swelling. Evaluation for a proximal radial fracture is limited due to patient positioning. There is no true lateral view. Repeat examination can be attempted when clinically feasible. 2. Mild medial compartment os arthritis of the left knee and mild left glenohumeral osteoarthritis. Electronically signed by: Bebe Winkler MD (03/18/2020 11:09 AM) [id number] DICTATED and SIGNED BY: BEBE WINKLER MD DATE: 03/18/20 1106 Assessment/Plan Assessment/Plan Displaced fracture of olecranon process with intraarticular extension of left ulna ICD-10-CM Code S52.032 The fracture is displaced and involves the joint. I recommended open treatment with internal fixation. Nonoperative treatment for this fracture is not recommended. I recommended plate and screw fixation. We discussed the potential risks of infection neurovascular injury bleeding stiffness need for hardware removal nonunion or other potential surgical or anesthetic complications. All of her questions about surgery were answered and she desires to proceed. Surgical plan is: Open treatment of olecranon process with internal fixation CPT 24294 Nothing to eat or drink after midnight. Surgery will be first thing in the orning. KAROLYN PUENTE MD Mar 18, 2020 14:34
[2020-03-18 15:00] VITALS: BP 149/85
[2020-03-18] MEDS: HYDROmorphone 2 MG/ML VIAL IVP PRN ×2 (15:59→19:27)
[2020-03-18 19:10] VITALS: BP 124/74
[2020-03-18 23:00] VITALS: BP 140/72
[2020-03-19] VITALS (8 sets, daily range): BP systolic 95–153; BP diastolic 64–84
[2020-03-19] MEDS: HYDROmorphone 2 MG/ML VIAL IVP PRN (03:57)
[2020-03-19] MEDS ORDERED: IV RINGERS,LACTATED 1000ML 1,000 ML IV SCH (07:00)
[2020-03-19] MEDS ORDERED: HYDROmorphone 2 MG/ML VIAL IV PRN (07:00)
[2020-03-19] MEDS ORDERED: BUPIVACAINE-EPI 0.25%-1:200000 MPF 30 ML VIAL. INJ ONE (07:00)
[2020-03-19] MEDS ORDERED: LIDOCAINE 1% PF 2 ML VIAL. ID PRN (07:00)
[2020-03-19] MEDS ORDERED: PROCHLORPERAZINE 10 MG/2 ML VIAL. IV PRN (07:00)
[2020-03-19] MEDS ORDERED: MORPHINE SULFATE 2 MG/ML VIAL. IV PRN (07:00)
[2020-03-19] MEDS ORDERED: ONDANSETRON PF 4 MG/2 ML VIAL. IV PRN (07:00)
[2020-03-19] MEDS ORDERED: fentaNYL PF VIAL 100 MCG/2 ML VIAL IV PRN (07:00)
[2020-03-19] MEDS ORDERED: fentaNYL PF VIAL 100 MCG/2 ML VIAL ONE ×3 (07:36→10:12)
[2020-03-19] MEDS ORDERED: PROPOFOL 10 MG/ML (20ML) VIAL. IV ONE (07:39)
[2020-03-19] MEDS ORDERED: MIDAZOLAM HCL/PF 2 MG/2 ML VIAL. ONE (07:39)
[2020-03-19] MEDS ORDERED: LIDOCAINE 2% PF 5 ML VIAL. ONE (07:39)
[2020-03-19] MEDS ORDERED: ESMOLOL 100 MG/10 ML VIAL. IVP ONE (08:45)
[2020-03-19] MEDS ORDERED: DEXAMETHASONE SOD PHOS 4 MG/ML VIAL ONE (08:55)
[2020-03-19] MEDS ORDERED: ONDANSETRON PF 4 MG/2 ML VIAL. ONE (08:55)
[2020-03-19] MEDS ORDERED: SEVOFLURANE 61 TO 120 MINUTES. IH ONE (09:13)
[2020-03-19] MEDS ORDERED: LABETALOL 20 MG/4 ML DISP.SYRIN. IVP ONE (09:15)
--- NOTE | 2020-03-19 09:32 | PDOC4 ---
Operative Note Operative Note Date of Procedure: May 13, 2019 Pre-Op Diagnosis: Displaced fracture of olecranon process with intraarticular extension of left ulna, initial encounter for closed fracture - S52.032A Post-Op Diagnosis: Displaced fracture of olecranon process with intraarticular extension of left ulna, initial encounter for closed fracture - S52.032A Procedure: Open treatment of ulnar fracture, proximal end, olecranon process, with internal fixation CPT 76226 Surgeon: Karolyn Rosado MD Speech Therapy Director: TEA Kelly Anesthesia: General EBL: 50 mL Specimens Obtained: none Complications: none Drains: none Findings: displaced olecranon fracture, mild comminution Tourniquet time: 33 minutes at 250 mmHg Implants: Synthes VA-LCP Olecranon Plates 2.7/3.5 with associated screws Indications for Procedure: This patient is a 64-year-old with a recent fall and a closed left olecranon fracture which is displaced and intra-articular. I recommended open treatment with internal fixation. We discussed the potential risks of surgery such as ulnar nerve injury, malunion or nonunion, possible need for hardware removal, loss of motion, arthritis, infection, bleeding, stiffness, or other potential surgical or anesthetic complications. All of her questions about surgery were answered and he desires to proceed. Procedure in Detail: The patient was identified in the preoperative holding area. The correct left upper extremity was marked by me. The patient was taken to the operating room where general anesthetic was used. The patient was positioned lateral on the operating table using a beanbag, with the bony prominences well-padded, and with an axillary roll. Preoperative antibiotics were given intravenously. A timeout procedure was performed. The limb was prepared in sterile fashion with ChloraPrep solution and sterile drapes were applied. An impervious stockinette and Coban were used over the lower part of the arm. A sterile tourniquet was applied to the upper portion of the limb. An Esmarch bandage was used to exsanguinate the limb and the tourniquet was inflated to 250 mmHg. A posterior midline incision was used. Sharp dissection was used and Bovie electrocautery was used as needed for hemostasis. The ulnar nerve was palpated, and carefully avoided during the surgery. The fracture was displaced and easily identified, and had fracture hematoma. I used curettes, rongeurs, and copious irrigation to flush out the joint and the fracture, and remove fracture hematoma and some small bits of cartilage from the fracture. I then used tenaculum bone clamps, and reduced the fracture manually by extending the elbow and with digital manipulation of the fragments, and then the bone clamps were able to hold the fracture reduced anatomically by palpation and image review. For internal fixation I used Synthes olecranon variable angle locking plate fixation. A small image intensifier was used throughout the procedure. All of the images were interpreted intraoperatively by me. A plate was applied, and provisionally attached to the bone with K wires. Positioning of the plate was confirmed on the image intensifier. Nonlocking screws were placed first, into the proximal and distal fragments to secure the plate to the bone. The metaphyseal screw was used to compress the fracture. The homerun screw was used through the proximal aspect of the plate. Additional locking screws were now placed proximally and distally. Satisfactory reduction and fixation was achieved and confirmed on the image intensifier. The fracture was no longer palpable and was anatomically reduced. Copious saline irrigation was used. The tourniquet was released. Bovie electrocautery was used for hemostasis. The skin edges were injected with 30 mL's of 0.25% bupivacaine with epinephrine. The incision was closed in layers with #0 Vicryl applied by me. My assistant project engineer completed the closure with the #3-0 Vicryl and fausto. Xeroform and a posterior well-padded dressing and a posterior splint were applied. The dressing included Xeroform, 4 x 4's, ABD, soft roll, Ortho-Glass splint, and Soy wrap. There were no apparent complications. Needle and sponge counts were correct. The patient returned to the recovery room in stable condition. KAROLYN ROSADO MD Mar 19, 2020 09:32
--- NOTE | 2020-03-19 09:36 | PDOC ---
Provider Note Date of Service: DATE: 03/19/20 TIME: 09:35 Provider Note Patient may be discharged home later today. PT and OT to get her up and ambulatory before discharge. I sent prescriptions to [facility]. See discharge paperwork. Justifications for Admission Other Justification KAROLYN PUENTE MD Mar 19, 2020 09:36
[2020-03-19] MEDS ORDERED: DEXTROSE 50% 25 GM / 50ML DISP.SYRIN. IV PRN (09:45)
[2020-03-19] MEDS ORDERED: oxyCODONE/APAP 5/325 1 TAB TABLET PO PRN ×2 (09:45→10:00)
[2020-03-19] MEDS ORDERED: fentaNYL PF VIAL 100 MCG/2 ML VIAL IVP PRN (09:45)
[2020-03-19] MEDS ORDERED: ONDANSETRON PF 4 MG/2 ML VIAL. IVP PRN (09:45)
[2020-03-19] MEDS ORDERED: POLYETHYLENE GLYCOL 3350 17 GM PACKET. PO PRN (09:45)
[2020-03-19] MEDS ORDERED: IV 1/2 NORMAL SALINE 1,000 ML IV SCH (10:00)
[2020-03-19] MEDS: fentaNYL PF VIAL 100 MCG/2 ML VIAL IV PRN ×2 (10:19→10:45)
--- NOTE | 2020-03-19 11:00 | NUR ---
Pt. back from PACU via bed. Rates pain at 4/10, LUE CDI, ice pack applied. Pt. drowsy, easily arousable, at bedside.
[2020-03-19 11:49] LABS: BASO % 0 % (0-3); EOS % 0 % (0-3); HEMATOCRIT 35.6 % (36.0-47.0); HEMOGLOBIN 11.8 g/dL (12.0-15.5); LYMPH # 1.2 x10^3/uL (1.0-4.8); LYMPH % 10 % (24-48); MEAN CORPUSCULAR HEMOGLOBIN 29 pg (25-35); MEAN CORPUSCULAR HGB CONC 33 g/dL (31-37); MEAN CORPUSCULAR VOLUME 86 fL (79-100); MONO # 0.5 x10^3/uL (0.0-1.1); MONO % 4 % (0-9); NEUT # 10.5 x10^3/uL (1.8-7.7); NEUT % 86 % (31-73); PLATELET COUNT 304 x10^3/uL (140-400); RED BLOOD COUNT 4.13 x10^6/uL (3.50-5.40); RED CELL DISTRIBUTION WIDTH 13.9 % (11.5-14.5); WHITE BLOOD COUNT 12.3 x10^3/uL (4.0-11.0)
[2020-03-19 12:19] LABS: CALCIUM 8.4 mg/dL (8.5-10.1); CREATININE 0.8 mg/dL (0.6-1.0); GFR 72.2; POTASSIUM 4.2 mmol/L (3.5-5.1)
--- NOTE | 2020-03-19 13:10 | PDOC ---
Provider Note Date of Service: DATE: 03/19/20 TIME: 13:08 Provider Note [id number] Justifications for Admission Other Justification LUISA GOULD MD Mar 19, 2020 13:10
[2020-03-19 14:40] LABS: % BANDS 4 % (0-9); % LYMPHS 13 % (24-48); % METAS 1 % (0-0); % MONOS 2 % (0-10); % SEGS 80 % (35-66)
[2020-03-19 14:41] LABS: PLT ESTIMATE ADEQUATE (ADEQUATE)
--- NOTE | 2020-03-19 14:51 | SSS ---
ADMIT DATE: 03/19/2020 HOSPITAL SUMMARY: This is a 64-year-old white female who came in with a fall at work and suffered a left olecranon fracture, which was repaired by Dr. Cloud on 03/19. Labs and her medical status is stable and she is comfortable and wishes to be followed as an outpatient at this point. She will be discharged if it is okay with Dr. Rosado at this point and follow up with Dr. Pinedo 1-2 weeks regarding the question of low blood pressure meds and Dr. Rosado as she requests for surgical followup as well. FINAL DIAGNOSIS: Traumatic fracture of the left olecranon. OPERATIONS AND PROCEDURES: Left elbow open reduction and internal fixation. COMPLICATIONS: None. CONSULTATIONS: Dr. Rosado. DISPOSITION: Home meds remain the same. Opioid med per . Activity as tolerated and see Dr. Pinedo 1-2 weeks for medical followup as well. LUISA GOULD MD DR: JENNY/latosha JOB#: [id number] / [id number]
--- NOTE | 2020-03-19 15:07 | NUR ---
Pt. discharged to home, verbalized understanding of discharge instructions. L arm drsg and sabinoing in tact.
[2020-03-20] MEDS ORDERED: MAGNESIUM HYDROXIDE 2,400 MG/30 ML ORAL.SUSP. PO PRN (06:00)
[2020-03-20] MEDS ORDERED: ATORVASTATIN CALCIUM 40 MG TABLET. PO SCH (09:00)
[2020-03-20] MEDS ORDERED: SENNOSIDES/DOCUSATE 8.6/50MG TABLET. PO SCH (09:00)
[2020-03-20] MEDS ORDERED: CHOLECALCIFEROL (VITAMIN D3) 1,000 UNIT TABLET PO SCH (09:00)
[2020-03-20] MEDS ORDERED: MULTIVITAMIN with MINERAL TABLET. PO SCH (09:00)
[2020-03-20] MEDS ORDERED: BISACODYL 10 MG SUPP.RECT. PR PRN (16:00)
== END 2020-03-19 16:05 | disposition home or self-care (01) | DRG 512 ==
LOC: ER 09:15 → 4 NORTH 12:16
PROVIDERS: ADMIT Family Medicine; ATTEND Family Medicine
PROC: 0PSL04Z Reposition Left Ulna with Internal Fixation Device, Open Approach (ICD-10-PCS; principal; 2020-03-19 08:00)
DX: S52.032A Displaced fracture of olecranon process with intraarticular extension of left ulna, initial encounter for closed fracture (principal); W01.0XXA Fall on same level from slipping, tripping and stumbling without subsequent striking against object, initial encounter; E78.5 Hyperlipidemia, unspecified; J44.9 Chronic obstructive pulmonary disease, unspecified; Z20.822 Contact with and (suspected) exposure to COVID-19; Y93.89 Activity, other specified; Y92.89 Other specified places as the place of occurrence of the external cause; Y99.8 Other external cause status
CPT/HCPCS: 36415; 73030; 73080; 73564; 80048; 80053; 82306; 85007; 85025; 86850; 86900; 86901; 87426; 96372; 96374; 99285; A4565; C1713; J0690; J1100; J1170; J2250; J2405; J2704; J3010; J3490; J7030; J7120; U0003; G0378

== ENCOUNTER → 2020-12-01 | Outpatient (CLI) | payer OTHER ==
[2020-03-19 14:33] VITALS: BP 129/78
--- NOTE | 2020-12-01 15:10 | RAD ---
MG BILAT SCREEN+RYAN 12/01/2020 7:28 AM INDICATION: Asymptomatic screening mammogram. COMPARISON: 10/08/2019, 12/18/2018 TECHNIQUE: 3D tomosynthesis was performed in CC and MLO projections. 2D views were obtained from the 3D data. CAD was utilized as needed. FINDINGS: Breast density: Category B: There are scattered areas of fibroglandular density. Right breast: There are no suspicious microcalcifications, masses or areas of architectural distortio n. Left breast: There are no suspicious microcalcifications, masses or areas of architectural distortion . Bilateral mammogram is compared to prior examinations appears unchanged. IMPRESSION: Negative bilateral mammogram. BI-RADS category: 1; Negative Recommendations: Recommend annual screening mammography in one year. Electronically signed by: Yodit Shaw MD (12/01/2020 3:07 PM) [id number]
== END ==
LOC: MAMMO 07:10
PROVIDERS: ATTEND Family Medicine
DX: Z12.31 Encounter for screening mammogram for malignant neoplasm of breast (principal)
CPT/HCPCS: 77063; 77067

== ENCOUNTER → 2020-12-08 | Outpatient (CLI) | payer OTHER ==
[2020-03-19 14:33] VITALS: BP 129/78
[2020-12-08 08:36] LABS: BASO # 0.1 x10^3/uL (0.0-0.2); BASO % 1 % (0-3); EOS # 0.2 x10^3/uL (0.0-0.7); EOS % 2 % (0-3); HEMATOCRIT 38.4 % (36.0-47.0); HEMOGLOBIN 12.8 g/dL (12.0-15.5); LYMPH # 2.4 x10^3/uL (1.0-4.8); LYMPH % 29 % (24-48); MEAN CORPUSCULAR HEMOGLOBIN 29 pg (25-35); MEAN CORPUSCULAR HGB CONC 33 g/dL (31-37); MEAN CORPUSCULAR VOLUME 86 fL (79-100); MONO # 0.9 x10^3/uL (0.0-1.1); MONO % 11 % (0-9); NEUT # 4.8 x10^3/uL (1.8-7.7); NEUT % 57 % (31-73); PLATELET COUNT 313 x10^3/uL (140-400); RED BLOOD COUNT 4.46 x10^6/uL (3.50-5.40); WHITE BLOOD COUNT 8.5 x10^3/uL (4.0-11.0)
[2020-12-08 08:56] LABS: CREATININE 0.8 mg/dL (0.6-1.0); TOTAL BILIRUBIN 0.4 mg/dL (0.2-1.0)
[2020-12-08 08:57] LABS: ALBUMIN 3.7 g/dL (3.4-5.0); ALBUMIN/GLOBULIN RATIO 0.9 (1.0-1.7); CALCIUM 9.5 mg/dL (8.5-10.1); POTASSIUM 4.3 mmol/L (3.5-5.1); TOTAL PROTEIN 7.9 g/dL (6.4-8.2)
[2020-12-08 09:00] LABS: CHOLESTEROL/HDL RATIO 2.8
[2020-12-08 09:13] LABS: FREE T4 1.29 ng/dL (0.76-1.46); THYROID STIM HORMONE (TSH) 1.557 uIU/mL (0.358-3.74)
[2020-12-09 01:09] LABS: HEMOGLOBIN A1C 6.3 % (4.8-5.6)
== END ==
LOC: LAB 07:07
PROVIDERS: ATTEND Family Medicine
DX: R73.03 Prediabetes (principal); E78.2 Mixed hyperlipidemia; R53.83 Other fatigue; Z86.39 Personal history of other endocrine, nutritional and metabolic disease
CPT/HCPCS: 36415; 80053; 80061; 82306; 83036; 84439; 84443; 85025

== ENCOUNTER → 2020-12-20 | Outpatient (CLI) | payer OTHER ==
[2020-03-19 14:33] VITALS: BP 129/78
--- NOTE | 2020-12-20 08:43 | KCIC ---
EXAM: CT CHEST WITHOUT CONTRAST (LDCT LUNG CANCER SCREENING). HISTORY: Risk factors for pulmonary malignancy. Lung cancer screening. Cigarette smoking. TECHNIQUE: CT of the chest was performed without intravenous contrast using a low-dose lung screening protocol. Findings analysis is based on ACR Lung-RADS v1.1. *One or more of the following individual ized dose reduction techniques were utilized for this examination: 1. Automated exposure control. 2. Adjustment of the mA and/or kV according to patient size. 3. Use of iterative reconstruction technique. COMPARISON: None. FINDINGS: The heart is normal in size. There is calcification of the mitral valve annulus. No patholo gically enlarged lymph node is seen. There is no infiltrate, pleural effusion or pneumothorax. There is no infiltrate or suspicious pulmonary nodule. There is a small hiatal hernia. There is no acute fi nding involving the upper abdomen. There is no acute or suspicious osseous finding. IMPRESSION: 1. No suspicious pulmonary nodule. Lung RADS category 1: Annual low-dose CT lung cancer screening is recommended. 2. No acute thoracic finding. Electronically signed by: Bebe See MD (12/20/2020 8:41 AM) [facility]
== END ==
LOC: KCIC CT 12:30
PROVIDERS: ATTEND Family Medicine
DX: Z12.2 Encounter for screening for malignant neoplasm of respiratory organs (principal); I34.0 Nonrheumatic mitral (valve) insufficiency; K44.9 Diaphragmatic hernia without obstruction or gangrene; F17.210 Nicotine dependence, cigarettes, uncomplicated
CPT/HCPCS: 71271

== ENCOUNTER → 2020-12-20 | Outpatient (CLI) | payer OTHER ==
[2020-03-19 14:33] VITALS: BP 129/78
--- NOTE | 2020-12-20 10:00 | KCIC ---
EXAM: DUAL ENERGY X-RAY ABSORPTIOMETRY (DEXA). HISTORY: Postmenopausal screening. FINDINGS: The lowest measured T-score is -1.0 in the lumbar spine, based on a bone mineral density of 0.938 g/cm^2. Refer to the worksheets for full detail. No comparison examinations are available. IMPRESSION: Normal. Bone mineral density yields a T-score of -1.0 or greater. Fracture risk is low. FRAX was not calculated. METHODOLOGY: Dual energy x-ray absorptiometry was performed to measure bone mineral density. The foll owing analysis is based on the 2019 Official Positions of the International Society for Clinical Dens itometry: Measurements of the hips and the average of L1-L4 are preferred. When the spine and/or hip cannot be feasibly measured or interpreted, or in the setting of hyperparathyroidism, distal radial bone minera l density may be measured. The lumbar spine T-score is based on the average bone mineral density of L1-L4. In the setting of art ifact or anatomic abnormality, some lumbar levels may be excluded, and the remaining levels used for calculation. A single lumbar level is not used for diagnosis, and if only a single level is available for assessment, another anatomic site will be used to assign a diagnosis. The hip T-score is based on the bone mineral density measurement of the femoral neck or total proxima l femur of either side, whichever is lowest. Bilateral mean values are not used for diagnosis. The forearm T-score is derived from 33% of the distal radius of the nondominant forearm. For postmenopausal and perimenopausal women, and men age 50 or older, of all ethnic groups, T-scores are calculated through comparison of the current measurement with the NHANES III database standard fo r females aged 20-29 years. The lowest T-score of the evaluated anatomic sites is used to a ssign a diagnosis based on the World Health Organization densitometric classification. In premenopausal females and males younger than age 50, a Z-score is calculated based on population s pecific reference data for patient sex and self-reported ethnicity. Electronically signed by: Todd Stone MD (12/20/2020 9:58 AM) [id number]
== END ==
LOC: KCIC DEXA 07:50
PROVIDERS: ATTEND Family Medicine
DX: Z13.820 Encounter for screening for osteoporosis (principal); Z78.0 Asymptomatic menopausal state
CPT/HCPCS: 77080

== ENCOUNTER → 2020-12-21 | Outpatient (CLI) | payer OTHER ==
[2020-03-19 14:33] VITALS: BP 129/78
== END ==
LOC: LAB 07:24
PROVIDERS: ATTEND Internal Medicine Pulmonary Disease
DX: U07.1 COVID-19 (principal)
CPT/HCPCS: U0003; U0005

== ENCOUNTER → 2021-01-17 | Outpatient (CLI) | payer OTHER ==
[2020-03-19 14:33] VITALS: BP 129/78
--- NOTE | 2021-01-19 18:06 | PATHOLOGY ---
[facility] Accession Number: [id number] . 01 Material submitted: . shoulder - L SHOULDER, R/O ATYPIA. Modifiers: left . 01 Clinician provided ICD-10: L81.9 . 02 Diagnosis: Skin, left shoulder biopsy: - Seborrheic keratosis. (JPM:mireya; 01/19/2021) QMS 01/19/2021 0856 Local . 02 Comment: There is no evidence of malignancy. (JPM:mireya; 01/19/2021) . 02 Electronically signed: . Dean Bourgeois MD, Pathologist NPI- [id number] . 01 Gross description: . The specimen is submitted in formalin, labeled "Loftiss, Phyllis". The site is not stated on the specimen container. The site is stated on the requisition as "L shoulder, rule out atypia". Received is a shave biopsy measuring 1.0 x 0.4 x 0.3 cm in greatest dimensions. The epidermal surface displays a poorly defined, raised, flaky, and dark brooks lesion measuring 0.9 x 0.4 x 0.2 cm. The surgical margin is inked. The specimen is bisected and placed in cassette A1.([facility]; 01/18/2021) [facility] 01/18/2021 1024 Local . 02 Pathologist provided ICD-10: L82.1 . 02 CPT . 176139 Specimen Comment: A courtesy copy of this report has been sent to [phone] Specimen Comment: Report sent to Performed at: [address], [place], [place] [id number] MD Efraín Ibanez MD Phone: [phone] Performed at: 02 [facility] [address] [place], [place] [id number] MD Dean Bourgeois MD Phone: [phone]
== END ==
LOC: SPEC 11:04 → EDSTATUS 01-26 13:57
PROVIDERS: ATTEND Family Medicine
DX: L81.9 Disorder of pigmentation, unspecified (principal)
CPT/HCPCS: 88305